=== PATIENT | female | born 1955 | race Asian ===

== ENCOUNTER → 2022-08-22 15:11 | Outpatient (BNVA) | payer OTHER, SELFPAY | PROVIDERS: Visit Provider Physician Assistant | DX: S67.197A Crushing injury of left little finger, initial encounter (principal); W31.9XXA Contact with unspecified machinery, initial encounter; Z23 Encounter for immunization | CPT/HCPCS: 73140; 90715; 99204 ==

== ENCOUNTER → 2022-08-24 13:41 | Outpatient (BNVA) | payer OTHER, SELFPAY | PROVIDERS: Visit Provider Physician Assistant | DX: S67.197A Crushing injury of left little finger, initial encounter (principal); W31.9XXA Contact with unspecified machinery, initial encounter | CPT/HCPCS: 99213 ==

== ENCOUNTER → 2022-08-31 13:28 | Outpatient (BNVA) | payer OTHER, SELFPAY | PROVIDERS: Visit Provider Physician Assistant | DX: S67.197A Crushing injury of left little finger, initial encounter (principal); W31.9XXA Contact with unspecified machinery, initial encounter | CPT/HCPCS: 99213 ==

== ENCOUNTER 2024-11-13 15:15 | Emergency (ER) | payer SELFPAY ==
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
[2024-11-13 15:24] VITALS: BP 125/67; BP 137/78; PULSE 104; PULSE 118; RESP 18; TEMP 36.4; O2SAT 95; O2SAT 98; BMI 19.8
--- NOTE | 2024-11-13 15:41 | ECG_ITS ---
Test Reason : chest pain Blood Pressure : */* mmHG Vent. Rate : 91 BPM Atrial Rate : 91 BPM P-R Int : 170 ms QRS Dur : 94 ms QT Int : 374 ms P-R-T Axes : 63 15 69 degrees QTcB Int : 460 ms Normal sinus rhythm Normal ECG No previous ECGs available Referred By: Generic ED Physician Electronically Signed By: David Velasco
[2024-11-13 15:55] VITALS: BP 132/65; PULSE 92; RESP 16; TEMP 36.4; O2SAT 97
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
[2024-11-13 18:00] VITALS: BP 122/58; PULSE 79; RESP 16; TEMP 36.7; O2SAT 98
[2024-11-13 18:23] LABS: MANUAL DIFF FLAG NO
[2024-11-13 18:33] LABS: Hematocrit 37.6 % (37.0-47.0); Hemoglobin 12.3 g/dl (12.0-16.0); Imm Gran Abs Auto 0.02 X10*3/uL (0.00-0.03); Imm Gran Pct Auto 0.3 % (0.0-0.4); Lymphocytes Absolute Auto 1.6 X10*3/uL (1.2-4.9); Mean Corpuscular HGB Conc 32.7 g/dl (31.0-35.0); Mean Corpuscular Hemoglobin 27.2 pg (27.0-33.0); Mean Corpuscular Volume 83.2 fL (80.0-98.0); NRBC Abs Auto 0.000 X10*3/uL (0.0-0.012); NRBC Pct Auto 0.0 /100WBC (0.0-0.2); Platelet Count 223 X10*3/uL (160-400); Red Blood Count 4.52 X10*6/uL (4.20-5.50); White Blood Count 7.7 X10*3/uL (4.8-10.8)
[2024-11-13 18:38] LABS: INTERNATIONAL NORM RATIO 1.0 (0.9-1.1); Prothrombin Time 11.5 SEC (10.9-12.4)
[2024-11-13 18:39] LABS: Alanine Aminotransferase 21 U/L (0-31); Albumin Level 3.8 g/dL (3.5-5.0); Alkaline Phosphatase 89 U/L (39-117); Anion Gap 11 (12-20); Aspartate Amino Transferase 30 U/L (5-31); Blood Urea Nitrogen 11 mg/dL (9-16); Calcium 8.8 mg/dL (8.4-10.2); Carbon Dioxide 25 mmol/L (22-29); Chloride 111 mmol/L (96-108); Creatinine Clr Calc Pharmacy 60.8; Estimated Glomerular Filt Rate > 60; Potassium 4.1 mmol/L (3.3-5.1); Sodium 143 mmol/L (135-145); Total Protein 6.9 g/dL (6.5-8.0)
[2024-11-13 18:41] LABS: Partial Thromboplastin Time 34.9 SEC (26.0-36.8)
[2024-11-13 18:46] LABS: Troponin-I High Sensitivity 10.0 ng/L (<3.5-17.0)
[2024-11-13 20:00] VITALS: BP 130/69; PULSE 65; RESP 16; TEMP 36.4; O2SAT 98
[2024-11-13 20:14] LABS: Appearance Urine Cloudy; Glucose Urine UA Negative (Negative); PH 8.5 (5.0-9.0); Specific Gravity - Urine 1.015 (1.005-1.025); UMIC TRIGGER UACC YES
[2024-11-13 20:19] LABS: UACC Culture Trigger YES
[2024-11-13 20:51] LABS: Troponin-I High Sensitivity 9.3 ng/L (<3.5-17.0)
[2024-11-13 22:28] VITALS: BP 134/63; PULSE 69; RESP 16; TEMP 36.4; O2SAT 100
[2024-11-13 22:33] VITALS: BP 134/63; PULSE 69; RESP 16; TEMP 36.4; O2SAT 100
== END 2024-11-13 22:33 | disposition home or self-care (01) ==
PROVIDERS: Physician Assistant; Emergency Provider Emergency Medicine
DX: S29.9XXA Unspecified injury of thorax, initial encounter (principal); S09.90XA Unspecified injury of head, initial encounter; M25.562 Pain in left knee; M25.561 Pain in right knee; R07.89 Other chest pain; R51.9 Headache, unspecified; R10.2 Pelvic and perineal pain; M54.2 Cervicalgia; V43.52XA Car driver injured in collision with other type car in traffic accident, initial encounter; Y93.9 Activity, unspecified; Y92.410 Unspecified street and highway as the place of occurrence of the external cause; Y99.8 Other external cause status; Z79.899 Other long term (current) drug therapy
CPT/HCPCS: 36415; 70450; 71250; 72125; 73564; 74176; 80053; 81001; 84484; 85025; 85610; 85730; 87086; 93005; 99284

== ENCOUNTER → 2024-11-13 15:41 | Outpatient (BNV) | payer OTHER, SELFPAY | PROVIDERS: Emergency Provider Emergency Medicine; Visit Provider Internal Medicine Cardiovascular Disease | DX: R07.9 Chest pain, unspecified (principal) | CPT/HCPCS: 93010 ==

== ENCOUNTER → 2024-11-13 16:31 | Outpatient (BNV) | payer OTHER, SELFPAY | PROVIDERS: Emergency Provider Emergency Medicine; Visit Provider Radiology Diagnostic Radiology | DX: N20.0 Calculus of kidney (principal); R07.9 Chest pain, unspecified; M54.2 Cervicalgia; R51.9 Headache, unspecified; M25.562 Pain in left knee; M25.561 Pain in right knee; V89.2XXA Person injured in unspecified motor-vehicle accident, traffic, initial encounter | CPT/HCPCS: 70450; 71250; 72125; 73564; 74176 ==